=== PATIENT | male | born 1975 | race Caucasian/White ===

== ENCOUNTER 2017-05-30 19:53 | Inpatient (IN) | payer MEDICAID ==
--- NOTE | 2017-05-30 20:15 | C.PDOC ---
History Of Present Illness 41 y/o male brought to ED by friend with complaints of withdrawal signs. Patient is a heroin, xanax and methadone abuse for 20 years and currently denies SI or HI. No other physical complaints at this time. Time Seen by Provider: 05/30/17 20:09 Chief Complaint (Nursing): Psychiatric Evaluation History Per: Patient History/Exam Limitations: no limitations Onset/Duration Of Symptoms: Days Current Symptoms Are (Timing): Still Present Suicide/Self Injury Attempted (Context): None Past Medical History Reviewed: Historical Data, Nursing Documentation, Vital Signs Vital Signs: Last Vital Signs Temp 99 F 05/30/17 19:58 Pulse 74 05/30/17 22:19 Resp 16 05/30/17 22:19 BP 134/91 H 05/30/17 22:19 Pulse Ox 95 05/30/17 22:19 - Medical History PMH: Anxiety, Back Problems Surgical History: No Surg Hx Family History: States: No Known Family Hx - Social History Hx Tobacco Use: Yes Hx Alcohol Use: No Hx Substance Use: No - Immunization History Hx Tetanus Toxoid Vaccination: No Hx Influenza Vaccination: No Hx Pneumococcal Vaccination: No Review Of Systems Constitutional: Negative for: Fever, Chills ENT: Negative for: Nose Discharge Respiratory: Negative for: Shortness of Breath Skin: Negative for: Rash Psych: Positive for: Withdrawal. Negative for: Anxiety, Suicidal ideation Physical Exam - Physical Exam Appears: Non-toxic, No Acute Distress Skin: Warm, Dry, No Rash Head: Atraumatic, Normacephalic Eye(s): bilateral: Normal Inspection Oral Mucosa: Moist Neck: Normal ROM, Supple Cardiovascular: Rhythm Regular Respiratory: Normal Breath Sounds, No Rales, No Rhonchi, No Wheezing Gastrointestinal/Abdominal: Soft, No Tenderness, No Guarding, No Rebound Extremity: Normal ROM, Capillary Refill (<2 seconds) Neurological/Psych: Oriented x3, Normal Speech, Normal Cognition Gait: Steady ED Course And Treatment - Laboratory Results Result Diagrams: 05/30/17 20:58 05/30/17 20:58 Lab Interpretation: Abnormal (tox + opiates, benzo, methadone. ASA/tylenol neg. ) O2 Sat by Pulse Oximetry: 99 (RA) Pulse Ox Interpretation: Normal Medical Decision Making Medical Decision Making: D/w crisis pt not Suicidal or homicidal. dispo pending. polysubstance abuse Disposition Doctor Will See Patient In The: Hospital Counseled Patient/Family Regarding: Studies Performed, Diagnosis - Disposition Referrals: Non [facility] Provider, [Primary Care Provider] - Disposition Time: 22:29 Condition: GOOD Forms: [facility] (Belarusian) - Clinical Impression Clinical Impression: Polysubstance (including opioids) dependence with physiol dependence - Scribe Statement The provider has reviewed the documentation as recorded by the Scribjessica Matthews All medical record entries made by the Renaeibjessica were at my direction and personally dictated by me. I have reviewed the chart and agree that the record accurately reflects my personal performance of the history, physical exam, medical decision making, and the department course for this patient. I have also personally directed, reviewed, and agree with the discharge instructions and disposition.
[2017-05-30 20:30] LABS: SQUAMOUS EPITHIAL < 1 /hpf (0-5); URINE BACTERIA RARE (<OCC); URINE BILIRUBIN NEGATIVE (NEGATIVE); URINE BLOOD 1+ (NEGATIVE); URINE CLARITY Clear (Clear); URINE COLOR Yellow (YELLOW); URINE GLUCOSE (UA) NORMAL (Normal); URINE LEUKOCYTE ESTERASE NEG Leu/uL (Negative); URINE PROTEIN NEGATIVE (NEGATIVE)
[2017-05-30 20:40] LABS: BARBITURATES, UR NEGATIVE (NEGATIVE); PHENCYCLIDINE, UR NEGATIVE (NEGATIVE)
[2017-05-30 20:41] LABS: BENZODIAZEPINES, UR POSITIVE (NEGATIVE); OPIATES, UR POSITIVE (NEGATIVE)
[2017-05-30 21:02] LABS: BASO # 0.1 K/uL (0.0-0.2); BASO % 0.6 % (0.0-2.0); EOS % 0.2 % (0.0-4.0); HEMOGLOBIN 13.5 g/dL (12.0-18.0); LYMPH # 2.9 K/uL (1.0-4.3); LYMPH % 30.8 % (20.0-40.0); MEAN CELL VOLUME 84.8 fL (80.0-94.0); MEAN CORPUSCULAR HEMOGLOBIN 28.2 pg (27.0-31.0); MEAN CORPUSCULAR HGB CONC 33.3 g/dL (33.0-37.0); MEAN PLATELET VOLUME 7.9 fL (7.2-11.7); MONO # 0.5 K/uL (0.0-0.8); MONO % 5.3 % (0.0-10.0); NEUT % 63.1 % (50.0-75.0); RBC 4.77 Mil/uL (4.40-5.90); RED CELL DISTRIBUTION WIDTH 14.5 % (11.5-14.5); WHITE BLOOD COUNT 9.5 K/uL (4.8-10.8)
[2017-05-30 21:17] LABS: ALBUMIN 4.3 g/dL (3.5-5.0); ALT/SGPT 25 U/L (21-72); AST/SGOT 24 U/L (17-59); BLOOD UREA NITROGEN 9 mg/dL (9-20); GFR AFRICAN-AMERICAN > 60; GFR NON-AFRICAN AMERICAN > 60
[2017-05-30 21:20] LABS: ACETAMINOPHEN < 10.0 ug/mL (10.0-30.0); SALICYLATE < 1.0 mg/dL 1
--- NOTE | 2017-05-31 11:02 | PCM.PSYCH ---
Initial Psychiatric Evaluation - Initial Psychiatric Evaluation Type of Admission: Voluntary Legal Status: Capacity Chief Complaint (in patient's own words): CC: "I was feeling depressed and suicidal" History of Present Illness and Precipitating Events: HPI: 41 year old male with extensive history of polysubstance abuse presented with visual and auditory hallucinations. He recently started a 20 month program at a detox facility in [place] but was sent to ED because the facility was not equipped for treating withdrawal symptoms. Patient reported he has been using heroin for 20 years about 30 bags daily IV and last use today. He reported currently going thru withdrawal symptoms experiencing body aches, irritability, anxiety and hallucinations. He reported he uses Xanax daily for the past 10 years 8mg prescribed by primary doctor. He reported history of detox at [facility] and was unable to provide time frame. He denies any history of inpatient or outpatient programs. He also reports of using methadone 80mg (obtained from [place]). He states he last used Xanax 3 days ago. He complains of severe anxiety, difficulty sleeping , and auditory hallucinations. He reports of having A/V hallucinations for the past 12 days in which he see bubbles and hears a voice talking about a gang. He reports paranoia as well. PsychHx: anxiety, no psychiatric hospitalizations SocialHx: lives alone; smokes 1 ppd; denies alcohol use; polysubstance abuse for 25 years (see HPI); former truck driver helper, currently unemployed PMHx: None reported Current Medications: Active Medications Generic Name Dose Route Start Last Admin Trade Name Freq PRN Reason Stop Dose Admin Clonidine HCl 0.1 mg 05/30/17 23:38 05/30/17 23:49 Catapres PO 0.1 mg Q6H PRN Administration Hypertension Ondansetron HCl 4 mg 05/30/17 23:38 Zofran Inj IM Q6H PRN Nausea/Vomiting Past Psychiatric History - Past Psychiatric History Previous Treatment History: None Pertinent Medical Hx (Current Medical&Sleep Prob, Allergies): Allergies Allergy/AdvReac Type Severity Reaction Status Date / Time No Known Allergies Allergy Unverified 05/30/17 19:57 Acetaminophen/Oxycodone Hydr [Percocet 325 mg-5 mg] 1 tab PO Q4H #15 tab Cyclobenzaprine HCl [Flexeril] 10 mg PO TID PRN #20 tab 10/03/12 Review of Systems - Review of Systems All systems: reviewed and no additional remarkable complaints except - Psychiatric Psychiatric: Abnormal Sleep Pattern, Anxiety, Auditory Hallucinations, Difficulty Concentrating, Suicidal Ideation, Visual Hallucinations Mental Status Examination - Personal Presentation Personal Presentation: Looks stated age - Affect Affect: Broad, Depressed - Motor Activity Motor Activity: Psychomotor Agitation - Reliability in Providing Information Reliability in Providing Information: Fair - Speech Speech: Disorganized - Mood Mood: Depressed, Anxious - Formal Thought Process Formal Thought Process: Hallucinations, Delusions, Paranoia - Hallucinations/Delusions Hallucinations: Visual, Auditory Delusions: Persecution - Obsessions/Compulsions Obsessions: No Compulsions: No - Cognitive Functions Orientation: Person, Place, Situation, Time Sensorium: Alert Attention/Concentration: Attentive Abstract Thinking: Stanley Estimate of Intelligence: Below average Judgement: Imparied, as evidence by: Poor judgement, Imparied, as evidence by: Lack of insight into illness - Risk Risk: Suicidal, Withdrawal, Diminished functioning - Limitations Limitations: Living alone DSM 5 DX - DSM 5 DSM 5 Diagnosis: Bipolar mixed severe with psychotic features Opioid use disorder severe Opioid withdrawal Sedative/hypnotic use disorder severe Sedative/hypnotic withdrawal - Recommended/Plan of Treatment Treatment Recommendations and Plan of Treatment: Bipolar mixed severe with psychotic features -Psychoeducation -Supportive therapy, individual therapy -Zofran 4 mg IM Q6 PRN -Gabapentin 300 mg PO TID -Depakote 250 mg PO BID -Clonidine 0.1 mg PO Q6 PRN Opioid use disorder severe Opioid withdrawal -Psychoeducation -Supportive therapy, individual therapy -Use [place] for abstinence -Methadone taper Sedative/hypnotic use disorder severe Sedative/hypnotic withdrawal -Psychoeducation -Supportive therapy, individual therapy -Use [place] for abstinence -Ativan 1 mg PO Q6 PRN - Smoking Cessation Smoking Cessation Initiated: No
[2017-05-31] MEDS: Divalproex 250 mg DR Tab PO SCH ×2 (11:09→17:00)
--- NOTE | 2017-05-31 15:09 | PCM.BM ---
<Padilla Winslow - Last Filed: 05/31/17 15:07> Treatment Plan Problems - Problems identified on initial assessmt Auditory Hallucination Date Initiated: 05/30/17 Time Initiated: 23:05 Assessment reference: NA Status: Active Opiates Abuse Date Initiated: 05/31/17 Time Initiated: 23:05 Assessment reference: NA Status: Active Treatment assets and liabiliti Patient Assests: physically healthy, negotiates basic needs Patient Liabilities: substance abuse (Opiates, Benzo, Methadone) - Milieu Protocol Maintain good personal hygiene: daily Encourage regular showers, daily Remind patient to perform daily oral care, every shift Assist patient to perform ADL's Conduct patient checks and document Observation sheet: Q15 minutes Maintain personal safety: every shift Educate patient to report safety concerns to staff, every shift Monitor environment for contraband/sharps Medication safety: Monitor for expected outcome, potential side effects: every shift, Assess barriers to learning: every shift, Assess readiness for medication education: every shift <Margarito Ricardo - Last Filed: 06/02/17 11:33> - Diagnosis (1) Bipolar disorder, curr episode mixed, severe, with psychotic features Status: Acute Interventions: 06/02/17 11:32 * Assess/adjust medications daily and /or as needed * See patient on an individual basis 7x/week to assess level of manic behaviors and stability * Discuss risks, benefits, side effects and alternatives of medications * (2) Opioid use disorder, severe, dependence Status: Acute Interventions: 06/02/17 11:33 * Assess 7x/week regarding severity of withdrawal * Educate regarding risks, benefits, side effects and alternatives of medications * Use Motivational Interviewing for abstinence * Use CBT for relapse prevention * Medication management for withdrawal symptoms * Encourage medication assisted treatment *
[2017-06-01] MEDS: Divalproex 250 mg DR Tab PO SCH ×2 (09:48→17:14)
--- NOTE | 2017-06-01 15:27 | PCM.PYCHPN ---
Psychiatric Progress Note - Psychiatric Progress Note Patient seen today, length of contact: 16 min Patient Chief Complaint: CC: "I have withdrawal" Problems Identified/Issues Discussed: Patient seen and evaluated, chart reviewed and discussed with the nurse. Patient remains very anxious with racing thoughts and difficulty sleeping. States his withdrawal symptoms are less intense than yesterday. Denies nausea, vomiting, diarrhea. Patient is compliant with medications and denies any side effects. Symptoms are improving but need more time to stabilize. Support and psychoeducation given. Medication Change: Yes (ativan taper) Medical Record Reviewed: Yes Mental Status Examination - Cognitive Function Orientation: Person, Place, Situation, Time Memory: Intact Attention: WNL Concentration: Poor Association: WNL Fund of Knowledge: Poor - Mood Mood: Depressed, Anxious - Affect Affect: Broad - Speech Speech: Appropriate, Loud - Formal Thought Process Formal Thought Process: Hallucinations - Suicidal Ideation Suicidal Ideation: No - Homicidal Ideation Homicidal Ideation: No Goal/Treatment Plan - Goal/Treatment Plan Need for Continued Stay: Severe depression anxiety, Severe functional impairment Progress Toward Problem(s) and Goals/Treatment Plan: Bipolar mixed severe with psychotic features -Psychoeducation -Supportive therapy, individual therapy -Zofran 4 mg IM Q6 PRN -Gabapentin 300 mg PO TID -Depakote 250 mg PO BID -Clonidine 0.1 mg PO Q6 PRN Opioid use disorder severe Opioid withdrawal -Psychoeducation -Supportive therapy, individual therapy -Use [place] for abstinence -Methadone taper Sedative/hypnotic use disorder severe Sedative/hypnotic withdrawal -Psychoeducation -Supportive therapy, individual therapy -Use [place] for abstinence -Ativan 1 mg PO Q6 PRN -Ativan taper Estimated Date of D/C: 06/04/17 - Smoking Cessation Smoking Cessation Initiated: No
[2017-06-02] MEDS: Divalproex 250 mg DR Tab PO SCH ×2 (10:46→17:12)
--- NOTE | 2017-06-02 11:32 | PCM.PYCHPN ---
Psychiatric Progress Note - Psychiatric Progress Note Patient seen today, length of contact: 16 min Patient Chief Complaint: CC: "I am feeling little better" Problems Identified/Issues Discussed: Patient seen and evaluated, chart reviewed and discussed with the nurse. Patient remains anxious but states his condition has improved, he was able to sleep well last night. Denies nausea, vomiting, diarrhea. Patient is compliant with medications and denies any side effects. Symptoms are improving but need more time to stabilize. Support and psychoeducation given. Medication Change: Yes (methaoden taper, ativan taper) Medical Record Reviewed: Yes Mental Status Examination - Cognitive Function Orientation: Person, Place, Situation, Time Memory: Intact Attention: WNL Concentration: Poor Association: WNL Fund of Knowledge: Poor - Mood Mood: Depressed, Anxious - Affect Affect: Broad - Speech Speech: Appropriate - Formal Thought Process Formal Thought Process: No Impairment - Suicidal Ideation Suicidal Ideation: No - Homicidal Ideation Homicidal Ideation: No Goal/Treatment Plan - Goal/Treatment Plan Need for Continued Stay: Severe depression anxiety, Severe functional impairment Progress Toward Problem(s) and Goals/Treatment Plan: Bipolar mixed severe with psychotic features -Psychoeducation -Supportive therapy, individual therapy -Zofran 4 mg IM Q6 PRN -Gabapentin 300 mg PO TID -Depakote 250 mg PO BID -Clonidine 0.1 mg PO Q6 PRN Opioid use disorder severe Opioid withdrawal -Psychoeducation -Supportive therapy, individual therapy -Use [place] for abstinence -Methadone taper Sedative/hypnotic use disorder severe Sedative/hypnotic withdrawal -Psychoeducation -Supportive therapy, individual therapy -Use [place] for abstinence -Ativan 1 mg PO Q6 PRN Estimated Date of D/C: 06/04/17 - Smoking Cessation Smoking Cessation Initiated: No
[2017-06-03] MEDS: Divalproex 250 mg DR Tab PO SCH ×2 (10:15→17:28)
--- NOTE | 2017-06-03 17:22 | PCM.PYCHPN ---
Psychiatric Progress Note - Psychiatric Progress Note Patient seen today, length of contact: 16 min Patient Chief Complaint: "OK" Problems Identified/Issues Discussed: The pt is seen, chart reviewed, case discussed with staff. He is always on the phone The pt is compliant with medications and reports no side-effects. Symptoms are improving but needs more time to stabilize. After care discussed, support and psychoeducation given. Medication Change: Yes (methaoden taper, ativan taper) Medical Record Reviewed: Yes Mental Status Examination - Cognitive Function Orientation: Person, Place, Situation, Time Memory: Intact Attention: WNL Concentration: Poor Association: WNL Fund of Knowledge: Poor - Mood Mood: Depressed, Anxious - Affect Affect: Broad - Speech Speech: Appropriate - Formal Thought Process Formal Thought Process: No Impairment - Suicidal Ideation Suicidal Ideation: No - Homicidal Ideation Homicidal Ideation: No Goal/Treatment Plan - Goal/Treatment Plan Need for Continued Stay: Severe depression anxiety, Severe functional impairment Progress Toward Problem(s) and Goals/Treatment Plan: Continue medications Support and psychoeducation daily Attend groups and activities daily After care planning done by NURYS - leaving tomorrow for [place] [facility] Estimated Date of D/C: 06/04/17
[2017-06-04 06:30] VITALS: BP 151/92; PULSE 80; RESP 16; TEMP 98; O2SAT 99
[2017-06-04] MEDS: Divalproex 250 mg DR Tab PO SCH (10:18)
== END 2017-06-04 13:25 | disposition home or self-care (01) | DRG 885 ==
LOC: SUPCPDRO 19:53 → C.ER 19:53 → C.5E 22:30
PROVIDERS: ADMIT Psychiatry & Neurology Psychiatry; ATTEND Psychiatry & Neurology Psychiatry
PROC: GZ3ZZZZ Medication Management (ICD-10-PCS; principal; 2017-05-30)
PROC: HZ2ZZZZ Detoxification Services for Substance Abuse Treatment (ICD-10-PCS; 2017-05-30)
PROC: GZ56ZZZ Individual Psychotherapy, Supportive (ICD-10-PCS; 2017-05-30)
PROC: HZ56ZZZ Individual Psychotherapy for Substance Abuse Treatment, Psychoeducation (ICD-10-PCS; 2017-05-30)
PROC: HZ59ZZZ Individual Psychotherapy for Substance Abuse Treatment, Supportive (ICD-10-PCS; 2017-05-30)
DX: F31.64 Bipolar disorder, current episode mixed, severe, with psychotic features (principal); F11.23 Opioid dependence with withdrawal; F13.239 Sedative, hypnotic or anxiolytic dependence with withdrawal, unspecified; F17.210 Nicotine dependence, cigarettes, uncomplicated; F41.9 Anxiety disorder, unspecified; F22 Delusional disorders

== ENCOUNTER 2018-03-26 19:16 | Inpatient (IN) | payer MEDICAID ==
[2018-03-26 19:43] LABS: SQUAMOUS EPITHIAL 1 /hpf (0-5); URINE BILIRUBIN NEGATIVE (NEGATIVE); URINE BLOOD NEGATIVE (NEGATIVE); URINE CLARITY Hazy (Clear); URINE GLUCOSE (UA) NORMAL (Normal); URINE LEUKOCYTE ESTERASE TRACE Leu/uL (Negative); URINE PROTEIN NEGATIVE (NEGATIVE)
[2018-03-26 19:52] LABS: URINE COLOR YELLOW (YELLOW)
[2018-03-26 19:52] LABS: HEMOGLOBIN 12.8 g/dL (12.0-18.0); MEAN CELL VOLUME 85.1 fL (80.0-94.0); MEAN CORPUSCULAR HEMOGLOBIN 27.5 pg (27.0-31.0); MEAN CORPUSCULAR HGB CONC 32.3 g/dL (33.0-37.0); MEAN PLATELET VOLUME 7.8 fL (7.2-11.7); RBC 4.65 Mil/uL (4.40-5.90); RED CELL DISTRIBUTION WIDTH 15.1 % (11.5-14.5); WHITE BLOOD COUNT 6.4 K/uL (4.8-10.8)
[2018-03-26 19:56] LABS: BARBITURATES, UR NEGATIVE (NEGATIVE); PHENCYCLIDINE, UR NEGATIVE (NEGATIVE)
[2018-03-26 20:02] LABS: BENZODIAZEPINES, UR POSITIVE (NEGATIVE); OPIATES, UR POSITIVE (NEGATIVE)
[2018-03-26 20:05] LABS: ALB/GLOB RATIO 1.5 (1.0-2.1); ALT/SGPT 58 U/L (21-72); AST/SGOT 32 U/L (17-59); BLOOD UREA NITROGEN 10 mg/dL (9-20); CALCIUM 8.2 mg/dl (8.6-10.4); GFR NON-AFRICAN AMERICAN > 60
--- NOTE | 2018-03-26 20:36 | C.PDOC ---
History Of Present Illness patient returns to the ER for admission to detox for opioid dependence. he admits to injecting heroin and using xanax. he denies any medical complaints including chest pain, sob, abd pain, vomiting, diarrhea, fever or chills. Time Seen by Provider: 03/26/18 19:36 Chief Complaint (Nursing): Substance Abuse Past Medical History Vital Signs: Last Vital Signs Temp 99.5 F 03/26/18 19:19 Pulse 78 03/26/18 19:19 Resp 16 03/26/18 19:19 BP 129/80 03/26/18 19:19 Pulse Ox 96 03/26/18 19:19 - Medical History PMH: Anxiety, Back Problems Denies: Diabetes, Hepatitis, HIV, HTN, Seizures, Sexually Transmitted Disease - [facility] Procedures DETOXIFICATION SERVICES FOR SUBSTANCE ABUSE TREATMENT (05/30/17) INDIV PSYCHOTHERAPY FOR SUBSTANCE ABUSE TREATMENT, SUPPORT (05/30/17) INDIV PSYCHOTHERAPY FOR SUBSTANCE ABUSE, PSYCHOEDUCATION (05/30/17) INDIVIDUAL PSYCHOTHERAPY, SUPPORTIVE (05/30/17) MEDICATION MANAGEMENT (05/30/17) Family History: States: Unknown Family Hx - Social History Hx Tobacco Use: Yes Hx Alcohol Use: No Hx Substance Use: Yes (heroin) - Immunization History Hx Tetanus Toxoid Vaccination: No Hx Influenza Vaccination: Yes Hx Pneumococcal Vaccination: No Review Of Systems Constitutional: Negative for: Fever, Chills ENT: Negative for: Nose Discharge, Nose Congestion Cardiovascular: Negative for: Chest Pain Respiratory: Negative for: Cough, SOB with Excertion Gastrointestinal: Negative for: Nausea, Vomiting, Abdominal Pain Neurological: Negative for: Weakness, Seizures, Dizziness Physical Exam - Physical Exam Appears: Non-toxic, In Acute Distress Skin: Warm, Dry, Pale Head: Atraumatic, Normacephalic Eye(s): bilateral: Normal Inspection Nose: No Epistaxis, No Tenderness Oral Mucosa: Moist Lips: No Swelling, No Laceration Neck: Normal ROM, Trachea Midline Chest: No Tenderness Cardiovascular: Rhythm Regular Respiratory: Normal Breath Sounds Gastrointestinal/Abdominal: Normal Exam, Bowel Sounds, Soft, No Tenderness Back: No CVA Tenderness Extremity: Normal ROM, No Tenderness Pulses: Left Radial: Normal, Right Radial: Normal Neurological/Psych: Oriented x3, Normal Speech ED Course And Treatment - Laboratory Results Result Diagrams: 03/26/18 19:49 03/26/18 19:49 Lab Results: Total Bilirubin 0.2 mg/dL (0.2-1.3) 03/26/18 19:49 AST 32 U/L (17-59) 03/26/18 19:49 ALT 58 U/L (21-72) 03/26/18 19:49 Alkaline Phosphatase 113 U/L (38-126) 03/26/18 19:49 Total Protein 6.8 g/dL (6.3-8.3) 03/26/18 19:49 Albumin 4.0 g/dL (3.5-5.0) 03/26/18 19:49 Globulin 2.8 gm/dL (2.2-3.9) 03/26/18 19:49 Albumin/Globulin Ratio 1.5 (1.0-2.1) 03/26/18 19:49 Urine Color Yellow (YELLOW) 03/26/18 19:38 Urine Clarity Hazy (Clear) 03/26/18 19:38 Urine pH 5.0 (5.0-8.0) 03/26/18 19:38 Ur Specific [place] 1.024 (1.003-1.030) 03/26/18 19:38 Urine Protein Negative mg/dL (NEGATIVE) 03/26/18 19:38 Urine Glucose (UA) Normal mg/dL (Normal) 03/26/18 19:38 Urine Ketones Trace mg/dL (NEGATIVE) 03/26/18 19:38 Urine Blood Negative (NEGATIVE) 03/26/18 19:38 Urine Nitrate Negative (NEGATIVE) 03/26/18 19:38 Urine Bilirubin Negative (NEGATIVE) 03/26/18 19:38 Urine Urobilinogen 4.0 mg/dL (0.2-1.0) 03/26/18 19:38 Ur Leukocyte Esterase Trace Adeline/uL (Negative) 03/26/18 19:38 Urine WBC (Auto) 3 /hpf (0-5) 03/26/18 19:38 Urine RBC (Auto) 2 /hpf (0-3) 03/26/18 19:38 Ur Squamous Epith Cells 1 /hpf (0-5) 03/26/18 19:38 O2 Sat by Pulse Oximetry: 96 Disposition - Disposition Disposition: HOSPITALIZED Disposition Time: 20:36 Condition: STABLE - Clinical Impression Clinical Impression: Opioid use disorder
--- NOTE | 2018-03-26 20:49 | PCM.BM ---
<Ligia Black - Last Filed: 03/26/18 20:48> Treatment Plan Problems - Problems identified on initial assessmt Denial Date Initiated: 03/26/18 Time Initiated: 20:48 Assessment reference: NA Status: Active Defensive Coping Date Initiated: 03/26/18 Time Initiated: 20:49 Assessment reference: NA Status: Active Treatment assets and liabiliti Patient Assests: ADL independent, physically healthy, negotiates basic needs, cognitively intact Patient Liabilities: substance abuse - Milieu Protocol Maintain good personal hygiene: daily Encourage regular showers, daily Remind patient to perform daily oral care, daily Assist patient to perform ADL's Conduct patient checks and document Observation sheet: Q15 minutes Maintain personal safety: every shift Educate patient to report safety concerns to staff, every shift Monitor environment for contraband/sharps Medication safety: Monitor for expected outcome, potential side effects: every shift, Assess barriers to learning: every shift, Assess readiness for medication education: every shift <Kerwin Raygoza - Last Filed: 03/27/18 13:16> - Diagnosis (1) Opioid use disorder, severe, dependence Status: Acute Interventions: 03/27/18 13:16 * Assess 7x/week regarding severity of withdrawal * Educate regarding risks, benefits, side effects and alternatives of medications * Use Motivational Interviewing for abstinence * Use CBT for relapse prevention * Medication management for withdrawal symptoms * Encourage medication assisted treatment * <Sharonda Pablo - Last Filed: 03/28/18 09:13> Family Contact Family involvement: No known Family/SO - Goals for Treatment Patient goals for treatment: Complete detox and apply for long-term inpatient program. Discharge/Continuing Care - Education Needs Education Needs: Patient Medication, Patient Diagnosis/Disease Process, Patient Coping Skills, Patient Anger Management skills, Patient Placement options, Patient Community resources - Discharge Discharge Criteria: No longer exhibiting s/s of withdrawal, Reduction of target symptoms Discharge to:: Substance Abuse Rehab - Treatment Team Participation Patient/Family/SO Statement: 03/28/18 09:12 "I wanna go to [place] but if I can't get in there, I'll try [place]..." Discussed with Family/SO: No Was Patient/Family/SO present at Treatment Team Meeting: Yes
[2018-03-26] MEDS ORDERED: Pneumococcal 23-Valent Vaccine IM ONE (21:42)
[2018-03-26] MEDS ORDERED: Aluminum Hydroxide/Magnesium Hydroxide Susp (30 mL) PO PRN (22:01)
--- NOTE | 2018-03-27 10:09 | PCM.PSYCH ---
Initial Psychiatric Evaluation - Initial Psychiatric Evaluation Type of Admission: Voluntary Legal Status: Capacity Chief Complaint (in patient's own words): "I need detox" History of Present Illness and Precipitating Events: He is seen, chart reviewed and case discussed. 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 He presented to the ED on 03/26 and was admitted to the [facility] detox unit for opioid detox. His UDS was positive for opioids and benzodiazepines. On examination patient comments that he feels very weak and anxious; additionally he mentions he had some difficulty sleeping overnight and had to move the mattress of his bed to the floor, as he kept rolling off. He has been taking 24 bags of heroin daily, by means of IV, for the last 10 years. His last use was on 03/26 during which time he used 24 bags. His longest time sober was for 3 years around 2011, and he ended up relapsing after experiencing a in the family. He has overdosed once recently. He was previously at [facility] for detox but has never been at a rehabilitation unit. He did try using methadone but only used it for 1 week. He has been taking 6-8 mg of Xanax daily for the last 2 years. His last use was on 03/25 during which time he used 6mg. He has no history of sobriety. Patient has smoked 2 packs per day for the last 20 years. He denies any alcohol use. He denies suicidal ideations, homicidal ideations, auditory hallucinations, and visual hallucinations. PMHx: History of seizures with withdrawal from Xanax, last one was this year PsychHx: Anxiety, depression, auditory hallucinations, visual hallucinations in the past. Still depressed but not suicidal Psych Hospitalizations: 05/30/17 at the [facility] psychiatric unit for severe depression FMHx: Denies Allergies: NKDA Current Medications: Active Medications Generic Name Dose Route Start Last Admin Trade Name Freq PRN Reason Stop Dose Admin Al Hydrox/Mg Hydrox/Simethicone 30 ml 03/26/18 22:01 Maalox 30 Ml PO TID PRN Indigestion / Heartburn Chlordiazepoxide 25 mg 03/27/18 10:06 Librium PO Q4H PRN Alcohol Withdrawal Chlordiazepoxide 0 mg 03/27/18 10:15 Librium PO 04/01/18 10:14 Q6H BAMBI Taper Clonidine HCl 0.1 mg 03/26/18 21:15 Catapres PO Q6 PRN opiate withdrawal Gabapentin 300 mg 03/27/18 14:00 Neurontin PO TID BAMBI Hydroxyzine HCl 25 mg 03/26/18 21:43 03/27/18 01:02 Atarax PO 25 mg Q6 PRN Administration Anxiety Loperamide HCl 2 mg 03/26/18 22:01 Imodium PO Q8 PRN Diarrhea Methadone HCl 0 mg 03/27/18 10:00 Methadone PO 03/31/18 09:59 Q24H BAMBI Taper Multivitamins 1 tab 03/27/18 10:15 Hexavitamin PO DAILY BAMBI Ondansetron HCl 4 mg 03/26/18 22:01 Zofran Tab PO Q8 PRN Nausea/Vomiting Trazodone HCl 50 mg 03/26/18 21:14 Desyrel PO HS PRN Insonmia Past Psychiatric History - Past Psychiatric History Previous Treatment History: Inpatient Pertinent Medical Hx (Current Medical&Sleep Prob, Allergies): Allergies Allergy/AdvReac Type Severity Reaction Status Date / Time No Known Allergies Allergy Unverified 05/30/17 19:57 No Known Home Med 03/26/18 Review of Systems - Psychiatric Psychiatric: Abnormal Sleep Pattern, Anhedonia, Anxiety, Auditory Hallucinations, Depression, Difficulty Concentrating, Irritability, Mood Swings, Panic Attacks. absent: Hallucinations, Homicidal Ideation, Paranoia, Suicidal Ideation Mental Status Examination - Personal Presentation Personal Presentation: Looks stated age - Affect Affect: Constricted - Motor Activity Motor Activity: Calm - Reliability in Providing Information Reliability in Providing Information: Good - Speech Speech: Organized - Mood Mood: Depressed, Anxious - Formal Thought Process Formal Thought Process: No Impairment - Cognitive Functions Orientation: Person, Place, Situation, Time Sensorium: Alert Attention/Concentration: Attentive Abstract Thinking: [place] Estimate of Intelligence: Average Judgement: Intact, as evidence by: Insight regarding need for hospitalization Memory: Recent intact, as evidence by: Ability to recall events of the day, Remote impaired as evidenced by: Inability to recall sig life events - Risk Risk: Seizure, Withdrawal, Diminished functioning - Strength & Assets Inventory Strength & Assets Inventory: Cooperative - Limitations Limitations: Other DSM 5 DX - DSM 5 DSM 5 Diagnosis: Opioid withdrawal Opioid use disorder, severe Sedative, hypnotic, anxiolytic withdrawal Sedative, hypnotic, anxiolytic use disorder, severe Generalized Anxiety d/o Major Depression Tobacco use d/o - Recommended/Plan of Treatment Treatment Recommendations and Plan of Treatment: Taper with methadone and Librium Gabapentin for augmentation andanxiety Remeron for depression As needed medications All risks, benefits and alternatives of the meds discussed, and the pt agreed and understood. Attend groups and activities Supportive therapy and psychoeducation [place] for abstinence CBT for relapse prevention Encourage MAT Refer to rehab or IOP, and self-help groups Teach healthy lifestyle methods, i.e. diet, exercise, meditation Smoking cessation with [place] Nicotine patch if needed 34 min Projected ELOS: 4-5 days Prognosis: good w treatment - Smoking Cessation Smoking Cessation Initiated: Yes
[2018-03-27] MEDS: Multiple Vitamins Tab PO SCH (10:59)
[2018-03-28] MEDS: Multiple Vitamins Tab PO SCH (09:21)
[2018-03-28 20:50] VITALS: O2SAT 96
[2018-03-29 06:02] VITALS: BP 130/80; PULSE 80; RESP 19; TEMP 97.8
--- NOTE | 2018-03-29 08:50 | PCM.PYCHDC ---
Mental Status Examination - Mental Status Examination Orientation: Person Discharge Summary - Discharge Note Consultations:: List each consultation separately and include: 1. Reason for request. 2. Findings. 3. Follow-up Summary of Hospital Course include:: 1. Description of specific treatment plan utilized for patients during their course of treatmen. 2. Summarize the time- course for resolution of acute symptoms and/or regressed behaviors. 3. Describe issues identified and worked on during hospitalization. 4. Describe medication utilized. 5. Describe medical problems identified and treated. 6. Reassessment of suicide risk Summary of Hospital Course: He is seen, chart reviewed and case discussed. 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 He presented to the ED on 03/26 and was admitted to the [facility] detox unit for opioid detox. His UDS was positive for opioids and benzodiazepines. On examination patient comments that he feels very weak and anxious; additionally he mentions he had some difficulty sleeping overnight and had to move the mattress of his bed to the floor, as he kept rolling off. He has been taking 24 bags of heroin daily, by means of IV, for the last 10 years. His last use was on 03/26 during which time he used 24 bags. His longest time sober was for 3 years around 2011, and he ended up relapsing after experiencing a in the family. He has overdosed once recently. He was previously at [facility] for detox but has never been at a rehabilitation unit. He did try using methadone but only used it for 1 week. He has been taking 6-8 mg of Xanax daily for the last 2 years. His last use was on 03/25 during which time he used 6mg. He has no history of sobriety. Patient has smoked 2 packs per day for the last 20 years. He denies any alcohol use. He denies suicidal ideations, homicidal ideations, auditory hallucinations, and visual hallucinations. PMHx: History of seizures with withdrawal from Xanax, last one was this year PsychHx: Anxiety, depression, auditory hallucinations, visual hallucinations in the past. Still depressed but not suicidal Psych Hospitalizations: 05/30/17 at the [facility] psychiatric unit for severe depression FMHx: Denies Allergies: NKDA - Diagnosis (1) Opioid use disorder, severe, dependence Status: Acute - Final Diagnosis (DSM 5) Condition upon Discharge: STABLE Disposition: AGAINST MEDICAL ADVICE Follow-up Treatment Plan: Taper with methadone and Librium Gabapentin for augmentation andanxiety Remeron for depression As needed medications All risks, benefits and alternatives of the meds discussed, and the pt agreed and understood. Attend groups and activities Supportive therapy and psychoeducation [place] for abstinence CBT for relapse prevention Encourage MAT Refer to rehab or IOP, and self-help groups Teach healthy lifestyle methods, i.e. diet, exercise, meditation Smoking cessation with [place] Nicotine patch if needed 34 min
--- NOTE | 2018-03-29 08:50 | PCM.PYCHPN ---
Psychiatric Progress Note - Psychiatric Progress Note Patient seen today, length of contact: 15 min Patient Chief Complaint: "I need detox" Medication Change: Yes Medical Record Reviewed: Yes Mental Status Examination - Cognitive Function Orientation: Person, Place, Situation, Time - Mood Mood: Depressed, Anxious - Affect Affect: Constricted - Formal Thought Process Formal Thought Process: No Impairment Goal/Treatment Plan - Goal/Treatment Plan Progress Toward Problem(s) and Goals/Treatment Plan: Taper with methadone and Librium Gabapentin for augmentation andanxiety Remeron for depression As needed medications All risks, benefits and alternatives of the meds discussed, and the pt agreed and understood. Attend groups and activities Supportive therapy and psychoeducation [place] for abstinence CBT for relapse prevention Encourage MAT Refer to rehab or IOP, and self-help groups Teach healthy lifestyle methods, i.e. diet, exercise, meditation Smoking cessation with [place] Nicotine patch if needed 34 min
== END 2018-03-29 06:54 | disposition left against medical advice (07) | DRG 743 ==
LOC: C.ER 19:16 → C.7D 20:34
PROVIDERS: ADMIT Psychiatry & Neurology Psychiatry; ATTEND Psychiatry & Neurology Psychiatry
PROC: HZ2ZZZZ Detoxification Services for Substance Abuse Treatment (ICD-10-PCS; principal; 2018-03-26)
PROC: HZ52ZZZ Individual Psychotherapy for Substance Abuse Treatment, Cognitive-Behavioral (ICD-10-PCS; 2018-03-26)
PROC: HZ59ZZZ Individual Psychotherapy for Substance Abuse Treatment, Supportive (ICD-10-PCS; 2018-03-26)
PROC: HZ56ZZZ Individual Psychotherapy for Substance Abuse Treatment, Psychoeducation (ICD-10-PCS; 2018-03-26)
PROC: HZ42ZZZ Group Counseling for Substance Abuse Treatment, Cognitive-Behavioral (ICD-10-PCS; 2018-03-26)
PROC: HZ46ZZZ Group Counseling for Substance Abuse Treatment, Psychoeducation (ICD-10-PCS; 2018-03-26)
PROC: GZHZZZZ Group Psychotherapy (ICD-10-PCS; 2018-03-26)
PROC: GZ58ZZZ Individual Psychotherapy, Cognitive-Behavioral (ICD-10-PCS; 2018-03-26)
PROC: GZ56ZZZ Individual Psychotherapy, Supportive (ICD-10-PCS; 2018-03-26)
DX: F11.23 Opioid dependence with withdrawal (principal); F13.230 Sedative, hypnotic or anxiolytic dependence with withdrawal, uncomplicated; F32.9 Major depressive disorder, single episode, unspecified; F41.1 Generalized anxiety disorder; F17.210 Nicotine dependence, cigarettes, uncomplicated